=== PATIENT | female | born 1985 | race Caucasian/White ===

== ENCOUNTER 2020-08-28 13:46 | Outpatient (REF) | payer OTHER, SELFPAY ==
[2020-08-28 14:05] LABS: COVID-19 Test Negative (Negative)
== END 2020-08-28 13:47 | disposition home or self-care (01) ==
LOC: HO.LAB 13:46
PROVIDERS: PCP Internal Medicine; Visit Provider Internal Medicine
DX: Z20.828 Contact with and (suspected) exposure to other viral communicable diseases (principal)
CPT/HCPCS: 87635; C9803

== ENCOUNTER 2020-11-22 07:16 | Outpatient (REF) | payer OTHER, SELFPAY ==
[2020-11-22 07:34] LABS: COVID-19 Test Negative (Negative); IDNOW Serial# 55D5AD1C
== END 2020-11-22 07:17 | disposition home or self-care (01) ==
LOC: HO.EMPCOV 07:16
PROVIDERS: Visit Provider Internal Medicine
DX: Z20.822 Contact with and (suspected) exposure to COVID-19 (principal)
CPT/HCPCS: 36415; 87635; C9803

== ENCOUNTER 2021-08-11 13:08 | Outpatient (REF) | payer OTHER, SELFPAY | END 2021-08-11 13:09 | disposition home or self-care (01) | LOC: HO.LAB 13:08 | PROVIDERS: Visit Provider Hospitalist | DX: Z20.822 Contact with and (suspected) exposure to COVID-19 (principal); B97.89 Other viral agents as the cause of diseases classified elsewhere; J02.8 Acute pharyngitis due to other specified organisms | CPT/HCPCS: U0003; U0005 ==

== ENCOUNTER 2023-02-26 01:49 | Emergency (ER) | payer OTHER, SELFPAY ==
[2023-02-26 02:21] VITALS: BP 99/64; PULSE 85; RESP 18; TEMP 36.4; O2SAT 100; BMI 27.5
[2023-02-26 03:45] VITALS: BP 125/79; PULSE 68; RESP 18; TEMP 36.6; O2SAT 100
--- NOTE | 2023-02-26 04:16 | ED.WOUNDLAC ---
HPI - Wound/Laceration General Chief Complaint: Wound/Laceration Stated Complaint: Laceration to Right middle finger Time Seen by Provider: 02/26/23 04:07 Source: patient Mode of arrival: ambulatory Limitations: no limitations History of Present Illness HPI narrative: Patient got superficial laceration from the sharp edge of white board on right middle finger while at work Related Data Home Medications Medication Instructions Recorded Confirmed bupropion HCl 100 mg tablet,12 hr 100 mg PO QAM 08/11/21 08/11/21 sustained-release escitalopram oxalate 10 mg tablet 10 mg PO DAILY 08/11/21 08/11/21 Allergies Allergy/AdvReac Type Severity Reaction Status Date / Time No Known Allergies Allergy Verified 08/11/21 13:06 [No Known Allergies*] Review of Systems Review of Systems: Yes all other systems are reviewed and are negative [facility] [place] Social History Social History Advance Directives: No Advance Directives Information Provided: Yes Physical Exam Vital Signs: Vital Signs: Last Vital Signs Temp 97.9 F 02/26/23 03:45 Pulse 68 02/26/23 03:45 Resp 18 02/26/23 03:45 BP 125/79 02/26/23 03:45 Pulse Ox 100 02/26/23 03:45 O2 Del Method Room Air 02/26/23 03:45 BMI result Body Mass Index 27.5 Extrem: Hand/finger images: 1. 1.5 cm laceration on dorsum of right middle phalanx of the middle finger neurovascular intact tendon intact Medications Administered Discontinued Medications Generic Name Dose Route Start Last Admin Trade Name Freq PRN Reason Stop Dose Admin Bacitracin 1 appl 02/26/23 04:07 02/26/23 04:17 Bacitracin Oint 0.9 Gm Packet TOPICAL 02/26/23 04:08 1 appl ONCE ONE Administration Protocol Procedures Laceration Laceration 1: Site: hand (Middle finger) Side (If applicable): right Size (cm): 1.5 Description: flap Depth: simple, single layer Local Anesthetic: lidocaine 1% Amount of anesthesia used (mL): 1 Skin layer closed with: nylon Size (cm): 5-0 Number of sutures: 4 Technique: simple, interrupted Discharge Plan Discharge Clinical Impression: Laceration Patient Disposition: Home, Self-Care Instructions: Finger Laceration (ED) Additional Instructions: Local care as advised Suture removal in 7-10 days Prescriptions: No Action bupropion HCl 100 mg tablet sustained-release 12 hr 100 mg PO QAM escitalopram oxalate 10 mg tablet 10 mg PO DAILY Stand Alone Forms: Work/School Release
[2023-02-26] MEDS: Bacitracin Oint 0.9 GM PACKET 1 APPL TOPICAL (04:17)
[2023-02-26] MEDS: Diphth,Pertus(ACell),Tet Adult 0.5 ML SYRINGE IM (04:31)
== END 2023-02-26 04:40 | disposition home or self-care (01) ==
PROVIDERS: Emergency Provider Internal Medicine; PCP Internal Medicine
DX: S61.212A Laceration without foreign body of right middle finger without damage to nail, initial encounter (principal); S60.511A Abrasion of right hand, initial encounter; W26.9XXA Contact with unspecified sharp object(s), initial encounter; Y93.9 Activity, unspecified; Y92.9 Unspecified place or not applicable; Y99.0 Civilian activity done for income or pay; Z23 Encounter for immunization
CPT/HCPCS: 12001; 90471; 90715; 99282; 99284

== ENCOUNTER → 2023-03-01 10:08 | Outpatient (BNVA) | payer OTHER, SELFPAY | PROVIDERS: PCP Internal Medicine | DX: Z13.89 Encounter for screening for other disorder (principal) | CPT/HCPCS: 99213 ==

== ENCOUNTER → 2023-03-05 07:46 | Outpatient (BNVA) | payer OTHER, SELFPAY | PROVIDERS: PCP Internal Medicine; Visit Provider Internal Medicine | DX: Z13.89 Encounter for screening for other disorder (principal) | CPT/HCPCS: 99213 ==